=== PATIENT | female | born 1955 | race African-American/Black ===

== ENCOUNTER 2020-07-21 01:56 | Emergency (ER) | payer OTHER ==
[~2020-07-21 01:56] MED LIST: ASPIRIN EC81 MG PO; COLESTID 1GM TAB1 GM PO; COREG 3.125M3.125 MG PO; CYCLOBENZAPRINE10 MG PO; FUROSEMIDE 40MG40 MG PO; NEURONTIN100 MG PO; NORVASC 10MG TA10 MG PO; NOVOLOG VI100 UNIT/1 SC; PROTONIX 40MG T40 MG PO; REGLAN5 MG PO; RENAGEL800 MG PO; TRESIBA100 UNIT/1 SC
[2020-07-21 03:08] LABS: EOSINOPHIL 4.9 % (0-7); HCT 40.1 % (37.0-47.0); HGB 12.4 g/dl (12.5-16.0); LYMPHOCYTE 36.1 % (15-48); MCH 29.9 pg (25.0-31.0); MCHC 30.9 g/dL (32.0-36.0); MCV 96.6 fL (78.0-100.0); MONOCYTE 7.5 % (0-12); MPV 10.7 fL (6.0-9.5); NEUTROPHIL 50.3 % (41-80); NRBC 0; PLT 281 K/uL (150-400); RBC 4.15 M/uL (4.20-5.40); RDW 14.9 % (11.5-14.0); WBC 8.8 K/uL (4.0-10.5)
[2020-07-21 03:13] LABS: ALBUMIN 3.3 g/dL (3.4-5.0); BILIRUBIN - TOTAL 0.3 mg/dL (0.2-1.0); BUN/CREAT RATIO (CALC) 4.7 RATIO; CREATININE 6.22 mg/dL (0.51-0.95); GLOBULIN (CALCULATION) 4.7 g/dL; POTASSIUM 4.9 mmol/L (3.5-5.1)
== END 2020-07-21 07:45 | disposition other institution (70) ==
LOC: FER 01:56
PROVIDERS: Student in an Organized Health Care Education/Training Program
DX: E87.70 Fluid overload, unspecified (principal); E11.22 Type 2 diabetes mellitus with diabetic chronic kidney disease; N18.6 End stage renal disease; Z99.2 Dependence on renal dialysis; Z98.890 Other specified postprocedural states; Z90.49 Acquired absence of other specified parts of digestive tract
CPT/HCPCS: 36415; 36600; 71045; 80053; 82803; 83605; 83880; 84145; 84484; 85025; 93005; 94640

== ENCOUNTER 2021-03-31 20:11 | Emergency (ER) | payer OTHER ==
[2021-03-31 22:01] LABS: BASOPHIL 0.3 % (0-2); EOSINOPHIL 3.8 % (0-7); HCT 32.2 % (37.0-47.0); HGB 9.6 g/dl (12.5-16.0); LYMPHOCYTE 17.9 % (15-48); MCH 29.3 pg (25.0-31.0); MCHC 29.8 g/dL (32.0-36.0); MCV 98.2 fL (78.0-100.0); MONOCYTE 7.8 % (0-12); MPV 9.9 fL (6.0-9.5); NRBC 0; PLT 235 K/uL (150-400); RBC 3.28 M/uL (4.20-5.40); RDW 16.3 % (11.5-14.0); WBC 6.3 K/uL (4.0-10.5)
[2021-03-31 22:31] LABS: ALBUMIN 2.8 g/dL (3.4-5.0); BILIRUBIN - TOTAL 0.3 mg/dL (0.2-1.0); BUN/CREAT RATIO (CALC) 2.9 RATIO; CREATININE 8.25 mg/dL (0.51-0.95); GLOBULIN (CALCULATION) 3.7 g/dL; POTASSIUM 4.2 mmol/L (3.5-5.1); TOTAL PROTEIN 6.5 g/dL (6.4-8.2)
[2021-04-01 12:15] LABS: C-REACTIVE PROTEIN 4.9 mg/dL (<=0.90)
== END 2021-04-01 12:27 | disposition home or self-care (01) ==
LOC: FER 20:11
PROVIDERS: Emergency Medicine; Internal Medicine
DX: U07.1 COVID-19 (principal); J81.1 Chronic pulmonary edema; E11.22 Type 2 diabetes mellitus with diabetic chronic kidney disease; I12.0 Hypertensive chronic kidney disease with stage 5 chronic kidney disease or end stage renal disease; N18.6 End stage renal disease; F17.200 Nicotine dependence, unspecified, uncomplicated; Z88.8 Allergy status to other drugs, medicaments and biological substances; Z99.2 Dependence on renal dialysis
CPT/HCPCS: 36415; 71045; 71275; 80053; 82728; 83615; 83690; 84145; 84484; 85025; 85379; 86140; 93005; J0692; J1200; J2405; J2930; J3370; J7050; Q9967; U0002